=== PATIENT | female | born 1990 | race Caucasian/White ===

== ENCOUNTER 2023-11-11 21:41 | Emergency (ER) | payer BC ==
[~2023-11-11] VITALS: Ht 167.6 cm; Wt 95.3 kg
[2023-11-11 22:05] VITALS: PULSE 97; RESP 20; TEMP 98.2; O2SAT 100
== END 2023-11-11 23:06 | disposition home or self-care (01) ==
LOC: ER 21:47
DX: M79.662 Pain in left lower leg (principal); M06.9 Rheumatoid arthritis, unspecified
CPT/HCPCS: 99282